=== PATIENT | female | born 1960 | race Caucasian/White ===

== ENCOUNTER 2018-04-22 08:12 | Day surgery (SDC) | payer OTHER ==
[~2018-04-22 08:12] MED LIST: CEFAZOLIN 1 GM INJ; DEXAMETHASONE 4 MG/ML 5 ML INJ; FENTAnyl 50 MCG/ML VIAL; GLYCOPYRROLATE 0.4 MG INJ; LIDOCAINE 2% (SDV) 5 ML INJ; MIDAZOLAM 1 MG/ML 2 ML INJ; NEOSTIGMINE 3 MG/3 ML SYRINGE; ONDANSETRON 4 MG INJ; PROPOFOL 20 ML; ROCURONIUM 50 MG INJ; ROPIVACAINE 0.5 % 30 ML VIAL; SEVOFLURANE 15 MIN; SUCCINYLCHOLINE CHLORIDE 100 MG/5 ML SYG IV
[2018-04-22] MEDS ORDERED: ROPIVACAINE 0.5 % 30 ML VIAL (12:08)
[2018-04-22] MEDS: GELATIN SIZE 100 SPONGE (13:38)
[2018-04-22] MEDS: THROMBIN 5000 UNIT VIAL (13:38)
[2018-04-22] MEDS: POLYMYXIN/BACITRACIN 1L IRRIG ×2 (13:38→15:49)
[2018-04-22] MEDS: ROPIVACAINE 0.5 % 30 ML VIAL (13:39)
[2018-04-22] MEDS: POVIDONE IODINE 10% 28.4 GM OINT (15:49)
[2018-04-22] MEDS ORDERED: SOD CHLORIDE 0.9% 1,000 ML IV (17:13)
[2018-04-22] MEDS ORDERED: ONDANSETRON 4 MG INJ IV ×2 (17:30)
[2018-04-22] MEDS ORDERED: OXYCODONE/ACETAMINOPHEN (5/325) TAB PO (17:30)
[2018-04-22] MEDS ORDERED: METOCLOPRAMIDE 10 MG INJ IV (17:30)
[2018-04-22] MEDS ORDERED: hydrALAzine 20 MG INJ IV (17:30)
[2018-04-22] MEDS ORDERED: morphine 2 MG INJ IV (17:30)
[2018-04-22] MEDS ORDERED: LABETALOL HCL 20MG INJ IV (17:30)
[2018-04-22] MEDS ORDERED: FENTAnyl 50 MCG/ML VIAL IV ×3 (17:30)
[2018-04-22] MEDS ORDERED: HYDROmorphONE 1 MG/5 ML IV SYRINGE IV ×3 (17:30)
[2018-04-22] MEDS: OXYCODONE/ACETAMINOPHEN (5/325) TAB PO (18:49)
== END 2018-04-22 19:21 | disposition home or self-care (01) ==
LOC: SDS 08:12
DX: M19.071 Primary osteoarthritis, right ankle and foot (principal)
CPT/HCPCS: 20900; 73630